=== PATIENT | male | born 1975 | race Hispanic/Latino ===

== ENCOUNTER 2018-03-28 13:11 | Emergency (ER) | payer BC ==
[2018-03-28 13:15] VITALS: BMI 35.6
[2018-03-28 13:16] VITALS: BP 145/86; PULSE 90; RESP 20; TEMP 98.5; O2SAT 96
[2018-03-28] MEDS ORDERED: Tdap Vaccine 0.5 ml Vial (10-64 yrs) IM ONE ×2 (13:32→13:46)
[2018-03-28] MEDS ORDERED: Lidocaine 2% Inj (20ml) INFIL ONE (13:32)
--- NOTE | 2018-03-28 13:35 | C.PDOC ---
History Of Present Illness 42 yo male come in for evaluation of laceration to Right forearm sustained [employer] while at work. Pt sts, " accidentally nail cut my arm". Otherwise, denies fever , chills, obvious deformity to Right forearm, significant bleeding, weakness, sensory or vascular deficits to Right arm. Ambulate to Ed for evaluation, not in any apparent distress. Time Seen by Provider: 03/28/18 13:15 Chief Complaint (Nursing): Abnormal Skin Integrity History Per: Patient Onset/Duration Of Symptoms: Sudden Onset Past Medical History Reviewed: Historical Data, Nursing Documentation, Vital Signs Vital Signs: Last Vital Signs Temp 98.5 F 03/28/18 13:15 Pulse 90 03/28/18 13:15 Resp 20 03/28/18 13:15 BP 145/86 03/28/18 13:15 Pulse Ox 96 03/28/18 13:39 - Medical History PMH: No Chronic Diseases Family History: States: No Known Family Hx - Social History Hx Alcohol Use: No Hx Substance Use: Yes - Immunization History Hx Tetanus Toxoid Vaccination: No Hx Influenza Vaccination: No Hx Pneumococcal Vaccination: No Review Of Systems Except As Marked, All Systems Reviewed And Found Negative. Constitutional: Negative for: Fever, Chills Gastrointestinal: Negative for: Nausea, Vomiting, Abdominal Pain Genitourinary: Negative for: Incontinence Musculoskeletal: Positive for: Other (Right forearm) Skin: Positive for: Lesions Neurological: Negative for: Weakness, Numbness Physical Exam - Physical Exam Appears: Well, Non-toxic, No Acute Distress Skin: Normal Color, Warm, Other ((+) 5cm length cutaneous linear laceration to volar aspect Right forearm. No wound FB, no bleeding, no cellulitis, no tendon or ligament exposure or injury.) Head: Atraumatic, Normacephalic Eye(s): bilateral: PERRL Extremity: Normal ROM (RUE with out difficulty), No Tenderness, Capillary Refill (less than 2sec to Right hand), No Deformity, No Swelling Neurological/Psych: Oriented x3, Normal Speech, Normal Motor, Normal Sensation, Normal Reflexes ED Course And Treatment O2 Sat by Pulse Oximetry: 96 Progress Note: On re-eval, pt is afebrile, hemodynamicaly stable. Right forearm : wound thoroughly cleaned, laceration repaird with sutures without difficulty. FAROM, no neurovascula deficits. tetanus given. Pt advised on wound care. re.f to f/u with PMD in 2 days for wound check.return to ED at any time if any sign of infection. Laceration - Laceration Repair Right forearm Wound Length (In cm): 5cm Description Of Wound: Linear Anesthesia: Lidocaine 2% Wound Examination: Irrigated With Saline, No FB With Wound Exploration, No Tendon Injury With Wound Exploration Wound Closure: Suture (#9) Suture Technique And Material Used: Interrupted, Nylon (4-0) Wound Complexity: Simple Disposition Counseled Patient/Family Regarding: Diagnosis, Need For Followup, Rx Given - Disposition Referrals: [facility] [Outside] Disposition: HOME/ ROUTINE Disposition Time: 13:37 Condition: STABLE Additional Instructions: Keep wound clean, dry Apply antibiotic cream topically daily Suture removal in 7-10 days Return to ED at any time if any sign of infection Prescriptions: Bacitracin OINT 1 applic TP BID #1 tube Cephalexin [cephalexin] 500 mg PO Q6 #28 cap Instructions: Laceration Repair With Stitches (DC) Forms: [employer] (Kiswahili), Work Excuse - Clinical Impression Clinical Impression: Laceration
[2018-03-28] MEDS ORDERED: Lidocaine 2% MPF (5 ml) Inj ONE (13:43)
[2018-03-28] MEDS ORDERED: Bacitracin 500 Units/gm Oint Foilpak UD ONE (14:06)
== END 2018-03-28 14:31 | disposition home or self-care (01) ==
LOC: C.ER 13:11
DX: S51.811A Laceration without foreign body of right forearm, initial encounter (principal); W45.8XXA Other foreign body or object entering through skin, initial encounter; Y92.89 Other specified places as the place of occurrence of the external cause; Y99.8 Other external cause status; Z23 Encounter for immunization